=== PATIENT | male | born 1990 | race Caucasian/White ===

== ENCOUNTER 2018-02-18 05:01 | Emergency (ER) | payer OTHER ==
[~2018-02-18] VITALS: Ht 182.9 cm; Wt 92.5 kg
[2018-02-18 05:06] VITALS: Ht 182.9 cm; Wt 92.5 kg
[2018-02-18 05:48] VITALS: BP 160/89
== END 2018-02-18 05:48 | disposition home or self-care (01) ==
LOC: ED 05:01
DX: S01.81XA Laceration without foreign body of other part of head, initial encounter (principal); W22.8XXA Striking against or struck by other objects, initial encounter; Y93.89 Activity, other specified; Y92.89 Other specified places as the place of occurrence of the external cause; Y99.8 Other external cause status
CPT/HCPCS: 90715

== ENCOUNTER 2018-02-20 13:30 | Emergency (ER) | payer OTHER ==
[~2018-02-20] VITALS: Ht 182.9 cm; Wt 90.7 kg
[2018-02-20 13:35] VITALS: BP 149/87; Ht 182.9 cm; Wt 90.7 kg
== END 2018-02-20 14:15 | disposition home or self-care (01) ==
LOC: ED 13:30
DX: S01.81XD Laceration without foreign body of other part of head, subsequent encounter (principal); I10 Essential (primary) hypertension; Z88.2 Allergy status to sulfonamides; X58.XXXD Exposure to other specified factors, subsequent encounter

== ENCOUNTER 2018-02-25 13:33 | Emergency (ER) | payer OTHER ==
[~2018-02-25] VITALS: Ht 182.9 cm; Wt 90.0 kg
[2018-02-25 13:36] VITALS: BP 147/94
== END 2018-02-25 14:11 | disposition home or self-care (01) ==
LOC: ED 13:33
DX: S01.81XD Laceration without foreign body of other part of head, subsequent encounter (principal); Z88.2 Allergy status to sulfonamides; X58.XXXD Exposure to other specified factors, subsequent encounter